=== PATIENT | male | born 1990 | race Caucasian/White ===

== ENCOUNTER 2016-10-03 14:41 | Emergency (ER) | payer OTHER ==
[2016-10-03] MEDS ORDERED: TDAP ADULT 0.5 ML INJ (BOOSTRIX) IM ONE (15:05)
--- NOTE | 2016-10-03 15:35 | EDPHY ---
H & P Time Seen by Provider: 10/03/16 15:27 HPI/ROS: CHIEF COMPLAINT: Hand injury versus dog bite HISTORY OF PRESENT ILLNESS: Patient was trying to take a pine cone out of a friend's dogs mouth when it bit him. Dog is fully immunized. Patient arrives with a wound to his left ring finger and left thumb but denies weakness or numbness distally. No motor deficit. REVIEW OF SYSTEMS: No other injuries PAST MEDICAL HISTORY: Negative, tetanus not up-to-date Social history: Works at [employer] General Appearance: Alert and conversant, cooperative. Superficial 1.5 cm laceration on the volar surface of the distal phalanx of the left ring finger. 1 mm abrasion on both the medial and lateral surfaces of the left thumb IP joint. Normal range of motion of all fingers. Normal motor sensory and vascular in ring and thumb including normal flexor and extensor tendon function and sensation and cap refill. No Kan[place] sign. Emergency Department course/MDM: Tetanus updated. Wounds are superficial. I do not think antibiotics are emergently indicated. Standard wound care and precautions discussed. Smoking Status: Current some day smoker Constitutional: Initial Vital Signs Temperature (C) 36.5 C 10/03/16 15:02 Heart Rate 76 10/03/16 15:02 Respiratory Rate 16 10/03/16 15:02 Blood Pressure 115/75 10/03/16 15:02 O2 Sat (%) 98 10/03/16 15:02 O2 Delivery Mode Room Air Allergies/Adverse Reactions: No Known Allergies Allergy (Unverified 10/03/16 15:01) Home Medications: Medication Instructions Recorded NK [No Known Home Meds] 10/03/16 MDM/Departure - MDM Medications Given: Discontinued Medications Diphtheria/Tetanus/Acell Pertussis (Boostrix) 0.5 ml IM .ONCE ONE Stop: 10/03/16 15:06 Last Admin: 10/03/16 15:27 Dose: 0.5 ml - Depart Disposition: Home, Routine, Self-Care Clinical Impression: Dog bite of hand Qualifiers: Encounter type: initial encounter Laterality: left Qualified Code(s): S61.452A - Open bite of left hand, initial encounter Condition: Good Instructions: Animal Bite (ED) Additional Instructions: You received updated tetanus immunization today. Please return to the emergency department or follow up with hand specialist if you developed redness or swelling or red streaks in the hand or fever or increasing pain. Stand Alone Forms: Statement of Treatment, Work Excuse Referrals: Manuel Daniels MD [Medical Doctor] - As per Instructions
[2016-10-03 16:03] VITALS: BP 118/76; PULSE 67; RESP 18; TEMP 98.8; O2SAT 97
== END 2016-10-03 16:03 | disposition home or self-care (01) ==
PROC: 3E0234Z Introduction of Serum, Toxoid and Vaccine into Muscle, Percutaneous Approach (ICD-10-PCS; principal; 2016-10-03)
DX: S61.452A Open bite of left hand, initial encounter (principal); F17.200 Nicotine dependence, unspecified, uncomplicated; Z23 Encounter for immunization; W54.0XXA Bitten by dog, initial encounter